=== PATIENT | female | born 1990 | race American Indian/Alaskan Native ===

== ENCOUNTER 2018-04-27 04:51 | Emergency (ER) | payer BC, MEDICAID ==
[2018-04-27 05:55] LABS: Basophils # (Auto) 0.1 K/mm3 (0.0-0.1); Basophils % (Auto) 1.1 % (0.0-1.8); Eosinophils # (Auto) 0.1 K/mm3 (0.0-0.4); Eosinophils % (Auto) 1.1 % (0.0-4.3); Hematocrit 39.1 % (30.3-42.9); Hemoglobin 12.5 gm/dl (10.1-14.3); Lymphocytes # (Auto) 0.8 K/mm3 (1.2-5.4); Lymphocytes % (Auto) 15.7 % (13.4-35.0); Mean Corpuscular HGB Conc 32 % (30-34); Mean Corpuscular Hemoglobin 26 pg (28-32); Mean Corpuscular Volume 81 fl (79-97); Monocytes # (Auto) 0.5 K/mm3 (0.0-0.8); Monocytes % (Auto) 9.6 % (0.0-7.3); Platelet Count 418 K/mm3 (140-440)
--- NOTE | 2018-04-27 06:14 | XRay Report ---
FINAL REPORT PROCEDURE: XR CHEST ROUTINE 2V TECHNIQUE: A portable AP chest radiograph was obtained at 04/27/2018 05:16 (EST) . CPT 77122 HISTORY: Chest Pain COMPARISON: No prior studies are available for comparison. FINDINGS: Heart: Normal. Mediastinum/Vessels: Normal. Lungs/Pleural space: Normal. Bony thorax: No acute osseous abnormality. Life support devices: None. IMPRESSION: No acute cardiopulmonary abnormality.
--- NOTE | 2018-04-27 06:15 | Emergency Department Report ---
ED Chest Pain HPI - General Chief Complaint: Chest Pain Stated Complaint: BODYACHE Time Seen by Provider: 04/27/18 06:14 Source: patient Mode of arrival: Ambulatory Limitations: No Limitations - History of Present Illness Initial Comments: 27-year-old female complains of subxiphoid O cane which was slightly radiating to the back. The patient is 3 weeks . She had some forceful vomiting prior to arrival. This did not persist. Her pain largely resolved as well. She denies shortness of breath. She denied any travel or leg pain. She is 3 weeks . She has no prior history of cardiac or pulmonary events. She has no known history of gallstones. She has no real cardiac risk factors. MD Complaint: chest pain (/abdominal pain) -: Gradual Onset: during rest Pain Location: epigastric (and subxiphoid ) Pain Radiation: back Severity: moderate, severe Severity scale (0 -10): 6 Quality: aching Consistency: now resolved Improves With: nothing Worsens With: nothing re: nausea, vomting. denies: diaphoresis, dyspnea, sense of impending doom Other Symptoms: denies: cough, fever, syncope Treatments Prior to Arrival: none Aspirin use within the Past 7 Days: (0) No - Related Data On Oral Contraceptives: No Previous Rx's Medication Instructions Recorded Last Taken Type HYDROcodone/APAP 5-325 [[place] 1 each PO Q6HR PRN #7 tablet 04/27/18 Unknown Rx 5/325] Ondansetron [Zofran Odt] 4 mg PO Q6H PRN #7 tab.rapdis 04/27/18 Unknown Rx Allergies Allergy/AdvReac Type Severity Reaction Status Date / Time No Known Allergies Allergy Verified 04/27/18 05:01 Heart Score - HEART Score History: Slightly suspicious EKG: Normal Age: < 45 Risk factors: 1-2 risk factors Troponin: < normal limit HEART Score: 1 - Critical Actions Critical Actions: 0-3 pts:0.9-1.7%risk of adverse cardiac event.Candidate for discharge ED Review of Systems ROS: Stated complaint: BODYACHE Other details as noted in HPI Constitutional: denies: chills, fever Eyes: denies: eye pain, eye discharge, vision change ENT: denies: ear pain, throat pain Respiratory: denies: cough, shortness of breath, wheezing Cardiovascular: chest pain. denies: palpitations Endocrine: no symptoms reported Gastrointestinal: abdominal pain, vomiting. denies: diarrhea Genitourinary: denies: urgency, dysuria, discharge Musculoskeletal: denies: back pain, joint swelling, arthralgia Skin: denies: rash, lesions Neurological: denies: headache, weakness, paresthesias Psychiatric: denies: anxiety, depression Hematological/Lymphatic: denies: easy bleeding, easy bruising ED Past Medical Hx - Past Medical History Previous Medical History?: Yes Hx Diabetes: Yes - Surgical History Additional Surgical History: LEEP procedure, jaw reconstruction x3 - Social History Smoking Status: Never Smoker Substance Use Type: None - Medications Home Medications: Home Medications Medication Instructions Recorded Confirmed Last Taken Type HYDROcodone/APAP 5-325 [[place] 1 each PO Q6HR PRN #7 tablet 04/27/18 Unknown Rx 5/325] Ondansetron [Zofran Odt] 4 mg PO Q6H PRN #7 tab.rapdis 04/27/18 Unknown Rx ED Physical Exam - General Limitations: No Limitations General appearance: alert, in no apparent distress - Head Head exam: Present: atraumatic, normocephalic - Eye Eye exam: Present: normal appearance, PERRL, EOMI. Absent: scleral icterus - ENT ENT exam: Present: mucous membranes moist - Neck Neck exam: Present: normal inspection - Respiratory Respiratory exam: Present: normal lung sounds bilaterally. Absent: respiratory distress - Cardiovascular Cardiovascular Exam: Present: regular rate, normal rhythm. Absent: systolic murmur, diastolic murmur, rubs, gallop - GI/Abdominal GI/Abdominal exam: Present: soft, normal bowel sounds. Absent: distended, tenderness, guarding, rebound, rigid - Extremities Exam Extremities exam: Present: normal inspection, full ROM, normal capillary refill. Absent: tenderness, pedal edema, joint swelling, calf tenderness - Back Exam Back exam: Present: normal inspection - Neurological Exam Neurological exam: Present: alert, oriented X3, CN II-XII intact. Absent: motor sensory deficit - Psychiatric Psychiatric exam: Present: normal affect, normal mood - Skin Skin exam: Present: warm, dry, intact, normal color. Absent: rash ED Course Vital Signs 04/27/18 04/27/18 04/27/18 04:50 05:02 05:49 Temperature 98.6 F 98.4 F 98.0 F Pulse Rate 72 62 70 Respiratory 16 16 20 Rate Blood Pressure 118/57 118/57 Blood Pressure 108/62 [Left] O2 Sat by Pulse 99 100 99 Oximetry 04/27/18 06:36 Temperature Pulse Rate Respiratory 12 Rate Blood Pressure Blood Pressure [Left] O2 Sat by Pulse 100 Oximetry - Reevaluation(s) Reevaluation #1: On reexamination the patient is clinically well. She has no complaints of pain. She feels ready for discharge. She is going to be referred to a surgeon. She is given return criteria. She has no evidence of cholecystitis. I do believe she had an episode of biliary colic. 04/27/18 10:18 OLMAN score - Olman Score Age > 65: (0) No Aspirin use within the Past 7 Days: (0) No 3 or more CAD Risk Factors: (0) No 2 or more Angina events in past 24 hrs: (0) No Known CAD with more than 50% Stenosis: (0) No Elevated Cardiac Markers: (0) No ST Deviation Greater than 0.5mm: (0) No OLMAN Score: 0 ED Medical Decision Making - Lab Data Result diagrams: 04/27/18 05:35 04/27/18 05:35 Laboratory Results - last 24 hr 04/27/18 05:35 WBC 4.8 RBC 4.80 Hgb 12.5 Hct 39.1 MCV 81 MCH 26 L MCHC 32 RDW 17.0 H Plt Count 418 Lymph % (Auto) 15.7 [place] % (Auto) 9.6 H Eos % (Auto) 1.1 Baso % (Auto) 1.1 Lymph # 0.8 L [place] # 0.5 Eos # 0.1 Baso # 0.1 Seg Neutrophils % 72.5 H Seg Neutrophils # 3.5 Laboratory Results - last 24 hr 04/27/18 04/27/18 04/27/18 05:35 05:35 05:35 WBC 4.8 RBC 4.80 Hgb 12.5 Hct 39.1 MCV 81 MCH 26 L MCHC 32 RDW 17.0 H Plt Count 418 Lymph % (Auto) 15.7 [place] % (Auto) 9.6 H Eos % (Auto) 1.1 Baso % (Auto) 1.1 Lymph # 0.8 L [place] # 0.5 Eos # 0.1 Baso # 0.1 Seg Neutrophils % 72.5 H Seg Neutrophils # 3.5 D-Dimer Sodium 139 Potassium 3.6 Chloride 98.3 Carbon Dioxide 28 Anion Gap 16 BUN 7 Creatinine 0.6 L Estimated GFR > 60 BUN/Creatinine Ratio 12 Glucose 131 H Calcium 9.5 Total Bilirubin 1.40 H AST 524 H ALT 250 H Alkaline Phosphatase 380 H Troponin T < 0.010 Total Protein 7.6 Albumin 4.1 Albumin/Globulin Ratio 1.2 Urine Color Yellow Urine Turbidity Hazy Urine pH 9.0 H Ur Specific [place] 1.009 Urine Protein <15 mg/dl Urine Glucose (UA) Neg Urine Ketones Neg Urine Blood Mod Urine Nitrite Neg Urine Bilirubin Neg Urine Urobilinogen 2.0 Ur Leukocyte Esterase Mod Urine WBC (Auto) 9.0 H Urine RBC (Auto) 9.0 U Epithel Cells (Auto) 1.0 04/27/18 05:38 WBC RBC Hgb Hct MCV MCH MCHC RDW Plt Count Lymph % (Auto) [place] % (Auto) Eos % (Auto) Baso % (Auto) Lymph # [place] # Eos # Baso # Seg Neutrophils % Seg Neutrophils # D-Dimer 564.20 H Sodium Potassium Chloride Carbon Dioxide Anion Gap BUN Creatinine Estimated GFR BUN/Creatinine Ratio Glucose Calcium Total Bilirubin AST ALT Alkaline Phosphatase Troponin T Total Protein Albumin Albumin/Globulin Ratio Urine Color Urine Turbidity Urine pH Ur Specific [place] Urine Protein Urine Glucose (UA) Urine Ketones Urine Blood Urine Nitrite Urine Bilirubin Urine Urobilinogen Ur Leukocyte Esterase Urine WBC (Auto) Urine RBC (Auto) U Epithel Cells (Auto) - EKG Data EKG shows normal: sinus rhythm, axis, intervals, QRS complexes, ST-T waves Rate: bradycardia (bradycardia at 51) - EKG Data Interpretation: nonspecific ST-T wave levar (nonspecific anterior T-wave inversion ) Critical care attestation.: If time is entered above; I have spent that time in minutes in the direct care of this critically ill patient, excluding procedure time. ED Disposition Clinical Impression: Biliary colic Disposition: - TO HOME OR SELFCARE Is pt being admited?: No Does the pt Need Aspirin: No Condition: Stable Instructions: Biliary Colic (ED) Additional Instructions: Return recurrent vomiting, fever or chills or significant pain. Avoid fatty food. Rx as needed. Surgical referral. Also follow-up with her primary care physician. Patient also told to pump her breasts if taking pain medicine and follow the child. Prescriptions: HYDROcodone/APAP 5-325 [[place] 5/325] 1 each PO Q6HR PRN #7 tablet PRN Reason: Pain Ondansetron [Zofran Odt] 4 mg PO Q6H PRN #7 tab.rapdis PRN Reason: Nausea Referrals: GRICELDA CASAREZ MD [Primary Care Provider] - 3-5 Days CAITLYN MALONE DO [Staff Physician] - 3-5 Days Time of Disposition: 10:21
[2018-04-27 06:21] LABS: Bilirubin,Urine NEG (Negative); Blood,Urine MOD (Negative); Color,Urine Yellow (Yellow); Protein,Urine <15 mg/dL mg/dL (Negative)
[2018-04-27 06:22] LABS: Alanine Aminotransferase 250 units/L (7-56); Albumin 4.1 g/dL (3.9-5); BUN/Creatinine Ratio 12; Blood Urea Nitrogen 7 mg/dL (7-17); Calcium 9.5 mg/dL (8.4-10.2); Hemolysis Index 0
--- NOTE | 2018-04-27 07:50 | Cat Scan Report ---
FINAL REPORT PROCEDURE: CT ANGIO CHEST TECHNIQUE: Computerized tomographic angiography of the chest was performed after the IV injection of iodinated nonionic contrast including image processing. The image data was postprocessed using 2-dimensional multiplanar reformatted (MPR) and 3-dimensional (MIP and/or volume rendered) techniques. HISTORY: pleuritic cp COMPARISON: No prior studies are available for comparison. FINDINGS: Heart and pericardium: Normal. Thoracic aorta: Normal. Pulmonary vasculature: Normal. Lymph nodes: No enlarged thoracic lymph nodes. Lungs: Normal. Pleural space: No effusion, thickening, or pneumothorax. Musculoskeletal structures: No significant abnormality. Upper abdominal structures: No significant abnormality. IMPRESSION: Normal Examination
--- NOTE | 2018-04-27 09:35 | Ultrasound Report ---
Limited abdominal ultrasound: Elevated LFTs and epigastric pain. Imaging of the liver and pancreas are both echogenically unremarkable. The gallbladder is filled with small echodensities with shadowing distally. The gallbladder wall is borderline thick. No pericholecystic fluid identified. The CBD diameter is 3.3 mm. The right kidney is echogenically unremarkable and has a length of 11 cm. The proximal abdominal aorta has a diameter of 1.7 cm. Impressions: Cholelithiasis.
[2018-04-27 10:55] VITALS: BP 113/74
== END 2018-04-27 10:55 | disposition home or self-care (01) ==
LOC: ED 04:51
DX: K80.50 Calculus of bile duct without cholangitis or cholecystitis without obstruction (principal); E11.9 Type 2 diabetes mellitus without complications
CPT/HCPCS: 36415; 71046; 71275; 76705; 80053; 81001; 84484; 85025; 85379; 93005; 93010; 99285; Q9967